=== PATIENT | male | born 1965 | race Caucasian/White ===

== ENCOUNTER → 2018-12-16 09:11 | Outpatient (CLI) | payer OTHER, SELFPAY ==
[2018-12-16 10:15] LABS: Alanine Aminotransferase 38 IU/L (21-72); Albumin 4.2 g/dL (3.5-5.0); Albumin Globulin Ratio 1.4 (1.0-2.8); Alkaline Phosphatase 100 U/L (38-126); Aspartate Aminotransferase 32 IU/L (17-59); Bilirubin Total 1.7 mg/dL (0.2-1.3); Bilirubin Unconjugated 1.6 mg/dL (0.0-1.1); Cholesterol 195 mg/dL (140-199); Globulin 2.9 g/dL (1.7-4.1); Glucose 105 mg/dL (70-100); HDL Cholesterol 97 mg/dL (40-60); HEMOLYSIS < 15 (0-50); LDL Cholesterol Calculated 84 mg/dL (<100); Total Protein 7.1 g/dL (6.3-8.2); Triglycerides 70 mg/dL (35-150)
[2018-12-16 10:43] LABS: Prostate Specific Antigen 0.603 ng/mL (0.10-4.00)
[2018-12-16 10:44] LABS: Thyroid Stimulating Hormone 1.56 uIU/mL (0.47-4.68)
== END ==
PROVIDERS: PCP Family Medicine; Visit Provider Family Medicine
DX: I10 Essential (primary) hypertension (principal); Z12.5 Encounter for screening for malignant neoplasm of prostate; Z13.220 Encounter for screening for lipoid disorders; Z13.1 Encounter for screening for diabetes mellitus; E34.9 Endocrine disorder, unspecified; R94.5 Abnormal results of liver function studies; Z13.29 Encounter for screening for other suspected endocrine disorder
CPT/HCPCS: 36415; 80061; 80076; 82947; 84153; 84403; 84443

== ENCOUNTER → 2021-03-02 13:28 | Outpatient (CLI) | payer OTHER, SELFPAY ==
--- NOTE | 2021-03-02 13:32 | DI.RAD.S_ITS ---
PROCEDURE: XR LUMBAR SPINE 2-3V INDICATIONS: Sprain of ligaments of lumbar spine, initial encounter TECHNIQUE: 2 views of the lumbar spine were acquired. COMPARISON: None. FINDINGS: Bones: 5 [id number] vertebrae are present. There is normal bony alignment. No vertebral body compression fractures. No suspicious bony lesions. Soft tissues: Overlying bowel gas pattern is normal. No suspicious soft tissue calcifications. IMPRESSION: There is a mild degree of degenerative disc disease at L4-5 and L5-S1, and at L2-L3. No trauma or subluxation is seen. Dictated by: Tal Felder M.D. on 03/02/2021 at 14:43 Approved by: Tal Felder M.D. on 03/02/2021 at 14:44
== END ==
PROVIDERS: PCP Family Medicine; Referring Provider Chiropractor; Visit Provider Chiropractor
DX: S33.5XXA Sprain of ligaments of lumbar spine, initial encounter (principal); S39.013A Strain of muscle, fascia and tendon of pelvis, initial encounter; M51.16 Intervertebral disc disorders with radiculopathy, lumbar region; M51.17 Intervertebral disc disorders with radiculopathy, lumbosacral region; X58.XXXA Exposure to other specified factors, initial encounter
CPT/HCPCS: 72100

== ENCOUNTER → 2023-10-01 08:22 | Outpatient (CLI) | payer OTHER, SELFPAY ==
[2023-10-01 09:24] LABS: Hemoglobin A1C% w Est Avg Glu 5.5 % (4.0-6.0)
[2023-10-01 09:25] LABS: Alanine Aminotransferase 30 IU/L (<50); Albumin 3.9 g/dL (3.5-5.0); Albumin Globulin Ratio 1.4 (1.0-2.8); Alkaline Phosphatase 101 U/L (38-126); Aspartate Aminotransferase 31 IU/L (17-59); BUN Creatinine Ratio 20.8 (6-22); Bilirubin Total 1.3 mg/dL (0.2-1.3); Blood Urea Nitrogen 15 mg/dL (9-20); Calcium 9.3 mg/dL (8.4-10.2); Carbon Dioxide 29 mmol/L (22-32); Chloride 103 mmol/L (98-107); Cholesterol 203 mg/dL (140-199); Estimated Glomerular Filt Rate > 60 mL/min (>60); Globulin 2.7 g/dL (1.7-4.1); Glucose 97 mg/dL (70-100); HDL Cholesterol 97 mg/dL (40-60); HEMOLYSIS < 15 (0-50); LDL Cholesterol Calculated 93 mg/dL (<100); Potassium 4.3 mmol/L (3.4-5.1); Sodium 135 mmol/L (137-145); Total Protein 6.6 g/dL (6.3-8.2); Triglycerides 67 mg/dL (35-150)
== END ==
PROVIDERS: PCP Family Medicine; Referring Provider Family Medicine; Visit Provider Family Medicine
DX: Z13.220 Encounter for screening for lipoid disorders (principal); R17 Unspecified jaundice; R73.9 Hyperglycemia, unspecified
CPT/HCPCS: 36415; 80053; 80061; 83036

== ENCOUNTER → 2023-10-03 12:38 | Outpatient (CLI) | payer OTHER, SELFPAY ==
[2023-10-06 12:45] LABS: Fecal Immunochemical Test Negative (Negative)
== END ==
PROVIDERS: PCP Family Medicine; Referring Provider Family Medicine; Visit Provider Family Medicine
DX: Z12.11 Encounter for screening for malignant neoplasm of colon (principal)
CPT/HCPCS: 82274

== ENCOUNTER → 2024-03-30 08:04 | Outpatient (CLI) | payer OTHER, SELFPAY | PROVIDERS: PCP Family Medicine; Visit Provider Physician Assistant Surgical | DX: L02.11 Cutaneous abscess of neck (principal) | CPT/HCPCS: 87070; 87075; 87205 ==

== ENCOUNTER → 2025-01-10 09:44 | Outpatient (CLI) | payer OTHER, SELFPAY ==
[2025-01-10 11:23] LABS: Alanine Aminotransferase 27 IU/L (<50); Albumin 4.3 g/dL (3.5-5.0); Albumin Globulin Ratio 1.7 (1.0-2.8); Alkaline Phosphatase 99 U/L (38-126); Aspartate Aminotransferase 30 IU/L (17-59); BUN Creatinine Ratio 19.2 (6-22); Blood Urea Nitrogen 15 mg/dL (9-20); Calcium 9.7 mg/dL (8.4-10.2); Carbon Dioxide 27 mmol/L (22-32); Chloride 104 mmol/L (98-107); Estimated Glomerular Filt Rate > 60 mL/min (>60); Globulin 2.6 g/dL (1.7-4.1); Glucose 113 mg/dL (80-110); HEMOLYSIS < 15 (0-50); Potassium 4.9 mmol/L (3.4-5.1); Sodium 136 mmol/L (137-145); Total Protein 6.9 g/dL (6.3-8.2)
[2025-01-10 11:30] LABS: Cholesterol 217 mg/dL (140-199); HDL Cholesterol 106 mg/dL (40-60); LDL Cholesterol Calculated 94 mg/dL (<100); Triglycerides 85 mg/dL (35-150)
[2025-01-10 11:54] LABS: Prostate Specific Antigen Scrn 0.949 ng/mL (0.1-4.0)
[2025-01-10 11:57] LABS: Testosterone 320 ng/dL (71.8-623)
== END ==
PROVIDERS: PCP Family Medicine; Referring Provider Family Medicine; Visit Provider Family Medicine
DX: E78.5 Hyperlipidemia, unspecified (principal); R53.83 Other fatigue; Z12.5 Encounter for screening for malignant neoplasm of prostate; E87.1 Hypo-osmolality and hyponatremia
CPT/HCPCS: 36415; 80053; 80061; 84403; G0103

== ENCOUNTER → 2025-02-01 08:05 | Outpatient (CLI) | payer OTHER, SELFPAY ==
[2025-02-02 14:08] LABS: Fecal Immunochemical Test Negative (Negative)
== END ==
PROVIDERS: PCP Family Medicine; Referring Provider Family Medicine; Visit Provider Family Medicine
DX: Z12.11 Encounter for screening for malignant neoplasm of colon (principal)
CPT/HCPCS: 82274